=== PATIENT | female | born 1950 | race Caucasian/White ===

== ENCOUNTER 2019-10-14 20:07 | Inpatient (IN) | payer MEDICARE, OTHER ==
[~2019-10-14] VITALS: Ht 149.9 cm; Wt 76.0 kg
[2019-10-14] MEDS ORDERED: OLAN7.5T2 PO (20:57)
[2019-10-14] MEDS ORDERED: RIVA20TA PO (20:57)
[2019-10-14] MEDS ORDERED: PANT40TA25 PO (20:57)
[2019-10-14] MEDS ORDERED: TRAZ150 PO (20:57)
[2019-10-14] MEDS ORDERED: METO50 PO (20:57)
[2019-10-14] MEDS ORDERED: MONT10TA21 PO (20:57)
[2019-10-14] MEDS ORDERED: LEVO50 PO (20:57)
[2019-10-14] MEDS ORDERED: ALPR0.5T8 PO (20:57)
[2019-10-14] MEDS ORDERED: ESCI20TA PO (20:57)
[2019-10-14] MEDS ORDERED: TEMA22.52 PO (20:57)
[2019-10-14] MEDS ORDERED: LAMO100 PO (20:57)
[2019-10-14] MEDS ORDERED: FENT-76 TD (20:57)
[2019-10-14] MEDS ORDERED: HYDR-4069 PO (20:57)
[2019-10-14 21:25] LABS: BASOPHILS % (AUTO) 0.9 % (0.0-2.0); EOSINOPHILS % (AUTO) 1.7 % (1.0-6.0); HEMATOCRIT 37.4 % (36-46); HEMOGLOBIN 12.4 g/dL (12.0-16.0); LYMPHOCYTES # (AUTO) 2.8 K/uL (1.0-4.8); MEAN CORPUSCULAR HGB CONC 33.2 G/dL (31.0-37.0); MEAN CORPUSCULAR VOLUME 90 fL (80-100); MONOCYTES # (AUTO) 0.9 K/uL (0.1-1.0); MONOCYTES % (AUTO) 9.5 % (2.0-9.0); NEUTROPHILS # (AUTO) 5.5 K/uL (1.8-7.7); NEUTROPHILS % (AUTO) 57.9 % (40.0-70.0); PLATELET COUNT (AUTO) 335 K/uL (150-450); RED BLOOD CELL COUNT(AUTO) 4.14 MIL/uL (4.00-5.20); RED CELL DISTRIBUTION WIDTH 14.3 % (11.5-14.5)
[2019-10-14 21:39] LABS: INR 1.2 (0.9-1.1); PROTHROMBIN TIME 11.7 SEC (9.4-11.6)
[2019-10-14 21:42] LABS: CALCIUM, TOTAL 8.9 mg/dL (8.8-10.5); CREATININE 1.07 mg/dL (0.60-1.30); POTASSIUM 3.7 mmol/L (3.5-5.1)
[2019-10-14 21:48] LABS: ALBUMIN 3.4 g/dL (3.4-5.0); BILIRUBIN,TOTAL 0.3 mg/dL (0.1-1.0)
[2019-10-14] MEDS ORDERED: ACETAMINOPHEN 325 MG TABLET PO PRN (23:30)
[2019-10-14] MEDS ORDERED: ONDANSETRON HCL 4 MG/2 ML VIAL IVP PRN (23:30)
[2019-10-14] MEDS ORDERED: 0.9% SODIUM CHLORIDE 10 ML SYRINGE IVP PRN (23:30)
[2019-10-15 01:16] VITALS: BP 118/76
[2019-10-15] MEDS ORDERED: INFLUENZA VIRUS VACCINE QVS 2019-20 (3YR+)/PF 60 MCG/0.5 ML SYRINGE IM ONE (02:00)
[2019-10-15] MEDS ORDERED: PNEUMOCOCCAL VACCINE POLYVALENT 0.5 ML VIAL [PPSV23] IM ONE (02:00)
[2019-10-15 04:46] VITALS: BP 132/67
[2019-10-15 07:19] VITALS: BP 143/84
[2019-10-15 11:02] VITALS: BP 154/63
[2019-10-15 12:26] LABS: ABG BASE EXCESS 0.4 mmol/L (-2.0-3.0); ABG PCO2 38 mmHg (35-45); ABG PH 7.433 (7.35-7.450); PO2, ARTERIAL BG 101.2 mmHg (79.0-87.0); SITE, BLOOD GAS RT RADIAL; SOURCE, BLOOD GAS ART; TEMPERATURE, FAHRENHEIT, BG 98.6 FAHREN (96.0-98.6)
[2019-10-15 12:27] LABS: ABG A-A DIFF O2 3.3 mmHg (10-20.0); ABG CARBOXYHEMOGLOBIN 2.4 % (0.0-1.5); ABG METHEMOGLOBIN 0.3 % (0.0-1.5); ABG OXYGEN CONTENT 17.6 mL/dL (15.0-23.0); ABG OXYGEN SATURATION 97.5 % (95.0-98.0); ABG OXYHEMOGLOBIN 94.9 % (94.0-100.0); ABG TOTAL HEMOGLOBIN 13.1 G/dL (12.0-18.0)
[2019-10-15 14:25] VITALS: BP 132/66
[2019-10-15] MEDS ORDERED: ALPRAZolam 0.5 MG TABLET PO ONE (15:45)
[2019-10-15] MEDS: HYDROCODONE/ACETAMINOPHEN 10-325 MG TABLET PO SCH ×2 (16:16→21:45)
[2019-10-15] MEDS ORDERED: FentaNYL 50 MCG/HOUR PATCH TD SCH (17:00)
[2019-10-15] MEDS: LamoTRIgine 100 MG TABLET PO SCH ×2 (17:44→20:52)
[2019-10-15] MEDS: RIVAROXABAN 20 MG TABLET PO SCH (18:02)
[2019-10-15] MEDS: TEMAZEPAM 7.5 MG CAPSULE PO SCH (20:52)
[2019-10-15] MEDS: TraZODone HCL 150 MG TABLET PO SCH (20:52)
[2019-10-15] MEDS: PANTOPRAZOLE SODIUM 40 MG DR TABLET PO SCH (20:52)
[2019-10-15] MEDS: MONTELUKAST SODIUM 10 MG TABLET PO SCH (20:52)
[2019-10-15] MEDS: OLANZapine 7.5 MG TABLET PO SCH (20:52)
[2019-10-15 21:46] VITALS: BP 135/72
[2019-10-16 00:45] VITALS: BP 130/68
[2019-10-16] MEDS: HYDROCODONE/ACETAMINOPHEN 10-325 MG TABLET PO SCH ×4 (03:45→21:45)
[2019-10-16] MEDS: LEVOTHYROXINE SODIUM 50 MCG TABLET PO SCH (06:07)
[2019-10-16 08:05] VITALS: BP 136/80
[2019-10-16] MEDS: METOPROLOL TARTRATE 50 MG TABLET PO SCH (08:43)
[2019-10-16] MEDS: LamoTRIgine 100 MG TABLET PO SCH ×3 (08:44→20:29)
[2019-10-16] MEDS: ESCITALOPRAM OXALATE 20 MG TABLET PO SCH (08:44)
[2019-10-16] MEDS: ALPRAZolam 0.5 MG TABLET PO SCH (08:44)
[2019-10-16 12:30] VITALS: BP 117/55
[2019-10-16 15:45] VITALS: BP 128/67
[2019-10-16] MEDS: RIVAROXABAN 20 MG TABLET PO SCH (18:22)
[2019-10-16] MEDS ORDERED: ACETAMINOPHEN 325 MG TABLET PO PRN (19:45)
[2019-10-16] MEDS ORDERED: MAGNESIUM HYDROXIDE SUSPENSION 30 ML UDCUP PO PRN (19:45)
[2019-10-16] MEDS ORDERED: BISACODYL 10 MG RECTAL RECTAL SUPPOSITORY PR PRN (19:45)
[2019-10-16] MEDS ORDERED: ALBUTEROL SULFATE 2.5 MG/0.5 ML NEB SOLUTION NEB PRN (19:45)
[2019-10-16] MEDS ORDERED: IPRATROPIUM BROMIDE 0.5 MG/2.5 ML NEB SOLUTION NEB PRN (19:45)
[2019-10-16] MEDS ORDERED: ZOLPIDEM TARTRATE 5 MG TABLET PO PRN (19:45)
[2019-10-16] MEDS: OLANZapine 7.5 MG TABLET PO SCH (20:28)
[2019-10-16] MEDS: PANTOPRAZOLE SODIUM 40 MG DR TABLET PO SCH (20:28)
[2019-10-16] MEDS: MONTELUKAST SODIUM 10 MG TABLET PO SCH (20:29)
[2019-10-16] MEDS: TraZODone HCL 150 MG TABLET PO SCH (20:29)
[2019-10-16] MEDS: DOCUSATE SODIUM 100 MG CAPSULE PO SCH (20:36)
[2019-10-16] MEDS: TEMAZEPAM 7.5 MG CAPSULE PO SCH (20:36)
[2019-10-16 20:37] VITALS: BP 120/70
[2019-10-16 20:42] LABS: BASOPHILS % (AUTO) 1.3 % (0.0-2.0); EOSINOPHILS % (AUTO) 2.7 % (1.0-6.0); HEMOGLOBIN 12.5 g/dL (12.0-16.0); LYMPHOCYTES # (AUTO) 2.6 K/uL (1.0-4.8); LYMPHOCYTES % (AUTO) 31.8 % (22.0-44.0); MEAN CORPUSCULAR HEMOGLOBIN 29.7 pg (26.0-34.0); MEAN CORPUSCULAR VOLUME 90 fL (80-100); MONOCYTES % (AUTO) 11.9 % (2.0-9.0); NEUTROPHILS # (AUTO) 4.3 K/uL (1.8-7.7); NEUTROPHILS % (AUTO) 52.3 % (40.0-70.0); PLATELET COUNT (AUTO) 320 K/uL (150-450); RED BLOOD CELL COUNT(AUTO) 4.22 MIL/uL (4.00-5.20); RED CELL DISTRIBUTION WIDTH 14.1 % (11.5-14.5)
[2019-10-16 20:51] LABS: CALCIUM, TOTAL 8.9 mg/dL (8.8-10.5); CREATININE 0.94 mg/dL (0.60-1.30); POTASSIUM 3.7 mmol/L (3.5-5.1)
[2019-10-16 20:58] LABS: ALBUMIN 3.2 g/dL (3.4-5.0); BILIRUBIN,TOTAL 0.2 mg/dL (0.1-1.0); TOTAL PROTEIN, SERUM 6.4 g/dL (6.4-8.2)
[2019-10-17 05:44] VITALS: BP 145/73
[2019-10-17] MEDS: HYDROCODONE/ACETAMINOPHEN 10-325 MG TABLET PO SCH ×2 (05:51→09:45)
[2019-10-17] MEDS: LEVOTHYROXINE SODIUM 50 MCG TABLET PO SCH (05:52)
[2019-10-17 07:15] LABS: BASOPHILS % (AUTO) 1.6 % (0.0-2.0); EOSINOPHILS % (AUTO) 2.6 % (1.0-6.0); HEMATOCRIT 39.6 % (36-46); HEMOGLOBIN 13.1 g/dL (12.0-16.0); LYMPHOCYTES # (AUTO) 4.1 K/uL (1.0-4.8); LYMPHOCYTES % (AUTO) 44.2 % (22.0-44.0); MEAN CORPUSCULAR HEMOGLOBIN 30.1 pg (26.0-34.0); MEAN CORPUSCULAR HGB CONC 33.1 G/dL (31.0-37.0); MEAN CORPUSCULAR VOLUME 91 fL (80-100); MONOCYTES # (AUTO) 0.8 K/uL (0.1-1.0); MONOCYTES % (AUTO) 8.7 % (2.0-9.0); NEUTROPHILS % (AUTO) 42.9 % (40.0-70.0); PLATELET COUNT (AUTO) 345 K/uL (150-450); RED BLOOD CELL COUNT(AUTO) 4.36 MIL/uL (4.00-5.20); RED CELL DISTRIBUTION WIDTH 14.3 % (11.5-14.5)
[2019-10-17 07:35] VITALS: BP 130/82
[2019-10-17 08:09] LABS: ALBUMIN 3.5 g/dL (3.4-5.0); BILIRUBIN,TOTAL 0.2 mg/dL (0.1-1.0); CALCIUM, TOTAL 9.2 mg/dL (8.8-10.5); CREATININE 1.02 mg/dL (0.60-1.30); POTASSIUM 4.1 mmol/L (3.5-5.1)
[2019-10-17] MEDS: ESCITALOPRAM OXALATE 20 MG TABLET PO SCH (08:38)
[2019-10-17] MEDS: METOPROLOL TARTRATE 50 MG TABLET PO SCH (08:38)
[2019-10-17] MEDS: DOCUSATE SODIUM 100 MG CAPSULE PO SCH (08:38)
[2019-10-17] MEDS: ALPRAZolam 0.5 MG TABLET PO SCH (08:38)
[2019-10-17] MEDS: LamoTRIgine 100 MG TABLET PO SCH (08:39)
[2019-10-17] MEDS: HEPARIN SODIUM,PORCINE 5,000 UNITS/ML VIAL SQ SCH ×2 (08:39)
[2019-10-17 11:25] VITALS: BP 120/58
== END 2019-10-17 14:30 | DRG 917 ==
LOC: EMS 20:14 → 5N 23:00
PROVIDERS: ADMIT Hospitalist; ATTEND Hospitalist
DX: T42.4X1A Poisoning by benzodiazepines, accidental (unintentional), initial encounter (principal); G92 Toxic encephalopathy; E03.9 Hypothyroidism, unspecified; G89.4 Chronic pain syndrome; F41.9 Anxiety disorder, unspecified; J44.9 Chronic obstructive pulmonary disease, unspecified; F03.90 Unspecified dementia, unspecified severity, without behavioral disturbance, psychotic disturbance, mood disturbance, and anxiety; I10 Essential (primary) hypertension; R09.02 Hypoxemia; Z96.649 Presence of unspecified artificial hip joint; F17.210 Nicotine dependence, cigarettes, uncomplicated; M19.90 Unspecified osteoarthritis, unspecified site; F20.9 Schizophrenia, unspecified; G47.00 Insomnia, unspecified; Z88.6 Allergy status to analgesic agent; Z88.8 Allergy status to other drugs, medicaments and biological substances; Z79.899 Other long term (current) drug therapy; Y92.89 Other specified places as the place of occurrence of the external cause; Z71.6 Tobacco abuse counseling
CPT/HCPCS: 36600; 82805; 87081; 93005; 97116; 97161; J1644